=== PATIENT | male | born 1955 | race Caucasian/White ===

== ENCOUNTER → 2021-12-25 | Day surgery (SDC) | payer OTHER ==
[~2021-12-25] VITALS: Ht 172.7 cm; Wt 108.4 kg
[~2021-12-25] MED LIST: CLARITIN10 MG PO; COZAAR25 MG PO; FLOMAX0.4 MG PO; HYOSCYAMINE0.125 MG PO; LEVBID0.375 MG PO; LOSARTAN POTASS25 MG PO; PERCOCET 5-3251 EACH PO; PROTONIX 40MG T40 MG PO
== END | disposition home or self-care (01) ==
LOC: FAS 06:01
DX: Z12.11 Encounter for screening for malignant neoplasm of colon (principal); K31.9 Disease of stomach and duodenum, unspecified; K29.50 Unspecified chronic gastritis without bleeding; K31.7 Polyp of stomach and duodenum; K63.5 Polyp of colon; K58.0 Irritable bowel syndrome with diarrhea; K44.9 Diaphragmatic hernia without obstruction or gangrene; N40.0 Benign prostatic hyperplasia without lower urinary tract symptoms; K21.9 Gastro-esophageal reflux disease without esophagitis; Z80.0 Family history of malignant neoplasm of digestive organs; Z86.010 Personal history of colon polyps; Z90.49 Acquired absence of other specified parts of digestive tract; Z88.1 Allergy status to other antibiotic agents; Z88.0 Allergy status to penicillin
CPT/HCPCS: J2704; J7120